=== PATIENT | male | born 2005 | race Caucasian/White ===

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

== ENCOUNTER 2025-02-17 10:21 | Emergency (ER) | payer OTHER, MEDICAID, SELFPAY ==
[2025-02-17 10:36] VITALS: BP 134/85; PULSE 104; RESP 20; TEMP 36.5; O2SAT 96
[2025-02-17] MEDS: Acetaminophen 500 MG TAB PO (11:59)
[2025-02-17] MEDS: Ketorolac 15 MG/ML VIAL IM (11:59)
[2025-02-17] MEDS: diazePAM 5 MG TAB PO (11:59)
[2025-02-17 13:51] LABS: Glucose Negative (Negative)
--- NOTE | 2025-02-19 10:56 | W.ED.GENAD ---
Discharge Plan Disposition Patient Disposition: Home Condition: Stable Discharge Details Clinical Impression: Back pain Primary Care Provider: Todd Watkins ED Provider: Danica Shirley Home Meds and New Rx's Prescriptions: New diazepam [Valium] 5 mg tablet 5 mg PO BID PRNQty: 6 0RF Discharge Instructions Instructions: Low Back Pain ED Additional Instructions: Take Motrin 600 mg every 8 hours with food Take the Valium 5 mg twice daily as needed for discomfort, do not drive a vehicle or consume any alcohol taking this medication and know that it can be addictive try not to do any heavy lifting or repetitive motion Continue to walk and move so that you do not become stiff Return should you develop strength or sensation changes to your extremities, worsening pain, fever, or should any new concerns arise Stand Alone Forms: Portal Information Referrals: Todd Watkins, COMMERCIAL ACCOUNT OFFICER [Primary Care Provider, Pediatrics Medical] Discharge Data Discharge Date/Time-TO BE ENTERED AT DEPARTURE: 02/17/25 14:39 HPI General Date/Time Provider Initiated Documentation: 02/17/25 11:05. HPI Narrative: This 19-year-old male presents with severe back pain since Sunday after lifting 2 heavy pounds of pallets for his woodstove. He states the pain is exacerbated by moving and deep breathing. He states he has a history of back pain in the past. Denies any additional trauma. He denies any radiation of pain or weakness. Denies any changes in bowel or bladder or illicit substance use. He denies any associated abdominal pain or groin pain. Related Data Home Medications ?Medication ?Instructions ?Recorded ?Confirmed diazepam 5 mg tablet (Valium) 5 mg PO BID PRN #6 tabs 02/17/25 Previous Rx's ?Medication ?Instructions ?Recorded diazepam 5 mg tablet (Valium) 5 mg PO BID PRN #6 tabs 02/17/25 Allergies Allergy/AdvReac Type Severity Reaction Status Date / Time tree nut Allergy Anaphylaxis Verified 02/17/25 10:43 pollen Allergy Mild sneezing Uncoded 02/17/25 10:43 General Stated Complaint: Nk/Back Pain CONSTANCE: 3 Exam Narrative Exam Narrative: Alert and oriented 19-year-old male in no acute distress tenderness with palpation overlying the paraspinal muscles no abdominal bruit or pulsatile mass, negative straight leg raise strength and sensation intact bilateral lower extremities no CVA tenderness, ambulatory with antalgic gait Course Vital Signs Vital signs: Vital Signs Temperature 36.5 C 02/17/25 10:36 Pulse 104 H 02/17/25 10:36 Respiratory Rate 20 02/17/25 10:36 Blood Pressure 134/85 02/17/25 10:36 Pulse Oximetry 96 02/17/25 10:36 Temperature 36.5 C 02/17/25 10:36 Temperature Source Oral 02/17/25 10:36 Pulse 104 H 02/17/25 10:36 Respiratory Rate 20 02/17/25 10:36 Blood Pressure 134/85 02/17/25 10:36 Blood Pressure Position Sitting 02/17/25 10:36 Pulse Oximetry 96 02/17/25 10:36 Oxygen Delivery Method Room Air 02/17/25 10:36 Oxygen Flow Rate 0 02/17/25 10:36 Pain Level 9 02/17/25 10:36 Lab/Test Results Lab/Test Results: Laboratory Tests Range/Units 02/17/25 13:37 Urine Color (Yellow) Yellow Urine Clarity (Clear) Sl Cloudy Urine pH (5-8) 5.5 Ur Specific [place] (1.005-1.025) >= 1.030 H Urine Protein (Neg-Trace) mg/dL Negative Urine Ketones (Negative) mg/dL Negative Urine Blood (Negative) Negative Urine Nitrite (Negative) Negative Urine Bilirubin (Negative) Negative Urine Urobilinogen (Up to 0.2) mg/dL 0.2 Ur Leukocyte Esterase (Negative) Negative Urine Glucose (Negative) mg/dL Negative Medical Decision Making Results: Urinalysis not show acute abnormality Assessment and plan: No suspicion clinically for a fracture, patient has reproducible paraspinal muscle tenderness, place Lidoderm patch given Valium with some mild relief in symptoms. Given several tablets of Valium for home, risk of addiction reviewed. Low suspicion clinically for cauda equina syndrome, patient has a nonfocal neurological assessment. He is encouraged to refrain from lifting and engage in strengthening and stretching exercises at home. Recheck in 2 to 3 days with PCP encouraged return precautions reviewed and patient expressed understanding. 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 Social History Smoking/Tobacco Use Status: Never Smoking risk assessment performed?: Yes Alcohol Intake: never Drug use: Never Substance use type: does not use Household members: family Housing: house Communication Needs: Corrective Lenses Education Level: college Details: [employer]--online courses Pets and animals: Yes (1 cat, 1 dog) Pets and animals: cat(s) and dog(s) Sexually active: No Current gender identity: male What type of physical activity do you participate in: other Details: participating in track and field; cross-country Seatbelt use: always Do you feel safe at home: Yes Do you feel safe in your relationship?: Yes
--- NOTE | 2025-02-20 16:36 | NUR.NOTE ---
chart accessed when pt called to have rx called into pharmacy. Information passed on to Danica Brothers Note:
== END 2025-02-17 14:39 | disposition home or self-care (01) ==
PROVIDERS: Emergency Provider Physician Assistant; PCP Nurse Practitioner Pediatrics
DX: M54.9 Dorsalgia, unspecified (principal)
CPT/HCPCS: 96372; 99284; 81003; 99283; J1885